=== PATIENT | male | born 1945 | race Caucasian/White ===

== ENCOUNTER 2024-03-01 06:00 | Emergency (ER) | payer SELFPAY ==
[~2024-03-01] VITALS: Ht 156.2 cm; Wt 72.3 kg
[2024-03-01 06:10] VITALS: O2SAT 98
[2024-03-01] MEDS: ONDANSETRON 4MG ODT PO ONE (08:01)
[2024-03-01] MEDS: LOSARTAN 50 MG TABLET PO ONE (08:04)
[2024-03-01 08:54] VITALS: BP 145/65; PULSE 60; RESP 16; TEMP 97.5
== END 2024-03-01 08:53 | disposition home or self-care (01) ==
LOC: ER 06:00
DX: R11.2 Nausea with vomiting, unspecified (principal); I10 Essential (primary) hypertension
CPT/HCPCS: 99283; Q0162